=== PATIENT | female | born 1965 | race African-American/Black ===

== ENCOUNTER 2019-06-07 12:12 | Outpatient (CLI) | payer MEDICARE ==
--- NOTE | 2019-06-07 15:40 | MMO ---
Bilateral MAMMO Bilat Screen [facility]. CLINICAL HISTORY: Patient is 53 years old and is seen for screening. The patient has the following family history of breast cancer: sister, at age 40. The patient has no personal history of cancer. VIEWS: The views performed were: bilateral craniocaudal with tomosynthesis and bilateral mediolateral oblique with tomosynthesis. FILMS COMPARED: The present examination has been compared to prior imaging studies performed at [facility] on 08/07/2008, 12/20/2009, 01/28/2011 and 04/02/2012. MAMMOGRAM FINDINGS: There are scattered fibroglandular densities. Finding 1: There are stable benign appearing calcifications seen in both breasts. Finding 2: Stable scattered benign appearing nodular densities are seen in each breast. There are no suspicious masses, suspicious calcifications, or new areas of architectural distortion. IMPRESSION: THERE IS NO MAMMOGRAPHIC EVIDENCE OF MALIGNANCY. A ROUTINE FOLLOW-UP MAMMOGRAM IN 1 YEAR IS RECOMMENDED. THE RESULTS OF THIS EXAM WERE SENT TO THE PATIENT. ACR BI-RADS Category 2 - Benign finding MAMMOGRAPHY NOTE: 1. A negative mammogram report should not delay a biopsy if a dominant of clinically suspicious mass is present. 2. Approximately 10% to 15% of breast cancers are not detected by mammography. 3. Adenosis and dense breasts may obscure an underlying neoplasm. Reported by: DONNA GONZÁLES MD Electonically Signed: [id number]
== END 2019-06-07 12:13 | disposition home or self-care (01) ==
LOC: BICMAMMO 12:12
PROVIDERS: ATTEND Family Medicine
DX: Z12.31 Encounter for screening mammogram for malignant neoplasm of breast (principal); Z80.3 Family history of malignant neoplasm of breast
CPT/HCPCS: 77063; 77067

== ENCOUNTER 2022-04-09 11:01 | Outpatient (CLI) | payer MEDICARE | END 2022-04-09 11:02 | disposition home or self-care (01) | LOC: BICMAMMO 11:01 | PROVIDERS: ATTEND Family Medicine | DX: Z12.31 Encounter for screening mammogram for malignant neoplasm of breast (principal); Z80.3 Family history of malignant neoplasm of breast | CPT/HCPCS: 77063; 77067 ==

== ENCOUNTER 2022-04-30 14:25 | Outpatient (CLI) | payer MEDICARE ==
[2022-04-30 15:18] LABS: #Eosinphils 0.1 10x3/uL (0.0-0.5); #Monocytes 0.6 10x3/uL (0.0-1.1); #Neutrophils 2.1 10x3/uL (1.5-8.4); %Basophils 0.4 % (0.0-2.0); %Eosinophils 1.5 % (0.0-6.0); %Lymphocytes 39.7 % (18.0-47.0); %Monocytes 12.5 % (0.0-10.0); %Neutrophils 45.7 % (40.0-75.0); Hemoglobin 12.1 g/dL (12.0-15.5); Mean Corpuscular HGB CONC 34.2 g/dL (32.0-36.0); Mean Corpuscular Hemoglobin 31.3 pg (27.0-33.0); Mean Corpuscular Volume 91.7 fl (81.6-98.3); Mean Platelet Volume 9.3 fl (7.4-10.4); Platelet Count 330 10x3/uL (150-450); RBC Distribution Width 11.9 % (11.5-14.5); Red Blood Cell (RBC) Count 3.86 10x6/uL (3.90-5.03); White Blood Cell (WBC) Count 4.6 10x3/uL (3.5-10.5)
[2022-04-30 15:37] LABS: INR-International Normal Ratio 0.9; Prothrombin Time 10.2 sec (9.5-12.1)
[2022-04-30 15:43] LABS: Anion Gap 14 mmol/L (10-20); BUN (Urea Nitrogen) 18 mg/dL (9.8-20.1); Calc. Creatinine Clearance 0 mL/min (70-130); Calcium 9.5 mg/dL (7.8-10.44); Carbon Dioxide 25 mmol/L (22-29); Chloride 108 mmol/L (98-107); Glucose 83 mg/dL (70-105); Potassium 4.1 mmol/L (3.5-5.1); Sodium 143 mmol/L (136-145)
== END 2022-04-30 14:26 | disposition home or self-care (01) ==
LOC: LABBT 14:25
PROVIDERS: ATTEND Orthopaedic Surgery
DX: Z01.818 Encounter for other preprocedural examination (principal); M17.12 Unilateral primary osteoarthritis, left knee; Z20.822 Contact with and (suspected) exposure to COVID-19
CPT/HCPCS: 80048; 85025; 85610; 87081; U0003; U0005; 93005; 93010

== ENCOUNTER 2022-05-05 06:23 | Inpatient (IN) | payer MEDICARE ==
[2022-05-05] MEDS ORDERED: Sodium Chloride 0.9% 100 ML ONE ×2 (06:51→09:11)
[2022-05-05] MEDS ORDERED: Tranexamic Acid 1,000 MG/10 ML VIAL ONE (06:51)
[2022-05-05] MEDS ORDERED: VANCOMYCIN 2 GRAM/500 ML BAG 2 GM in Premix Bag 1 BAG IVPB SCH (07:00)
[2022-05-05] MEDS ORDERED: Midazolam HCl 2 mg/2 ml Vial ONE (07:46)
[2022-05-05] MEDS ORDERED: Fentanyl 100 MCG/2 ML VIAL ONE ×4 (07:46→13:46)
[2022-05-05] MEDS ORDERED: Lidocaine 1% (PF) 30 ML VIAL ONE (07:47)
[2022-05-05] MEDS ORDERED: Fentanyl 100 MCG/2 ML VIAL IV PRN (08:21)
[2022-05-05] MEDS ORDERED: HYDROcodone/Acetaminophen 10/325 mg Tablet PO PRN (08:30)
[2022-05-05] MEDS ORDERED: Promethazine HCl 25 MG/ML VIAL IM PRN ×2 (08:30→09:05)
[2022-05-05] MEDS ORDERED: Ondansetron PF 4 MG/2 ML Vial IVP PRN ×2 (08:30→09:05)
[2022-05-05] MEDS ORDERED: Ropivacaine 0.2% 550 ML 550 ML NERVE BLCK SCH (08:30)
[2022-05-05] MEDS ORDERED: Zolpidem Tartrate 5 MG TAB PO PRN ×2 (08:30→09:05)
[2022-05-05] MEDS ORDERED: traMADol HCl 50 MG TAB PO PRN ×2 (08:30)
[2022-05-05] MEDS ORDERED: Bupivacaine PF 0.5% 30 ML VIAL ONE (08:55)
[2022-05-05] MEDS ORDERED: fentaNYL Citrate/PF 100 MCG/2 ML SYRINGE ONE ×3 (09:03→10:12)
[2022-05-05] MEDS ORDERED: Acetaminophen 325 MG TAB PO PRN (09:05)
[2022-05-05] MEDS ORDERED: diphenhydrAMINE 25 MG CAP PO PRN (09:05)
[2022-05-05] MEDS ORDERED: CEFAZOLIN 2 GM VIAL ONE (09:11)
[2022-05-05] MEDS ORDERED: Ketorolac Tromethamine 30 MG/ML VIAL ONE (12:22)
[2022-05-05] MEDS: Ketorolac Tromethamine 30 MG/ML VIAL IVP SCH ×2 (16:18→17:35)
[2022-05-05] MEDS: CEFAZOLIN 2 GM in Sodium Chloride 0.9% 100 ML IVPB SCH (17:35)
[2022-05-05] MEDS: Oxybutynin 5 MG TAB PO SCH (21:03)
[2022-05-05] MEDS: Aspirin 81 mg Enteric Coated Tablet PO SCH (21:03)
[2022-05-05] MEDS: Ferrous Gluconate 324 MG TAB PO SCH (21:03)
[2022-05-05] MEDS: Atorvastatin Calcium 10 MG TAB PO SCH (21:03)
[2022-05-05] MEDS: Senokot S 8.6-50 MG TAB PO SCH (21:03)
[2022-05-05] MEDS: HYDROcodone/Acetaminophen 10/325 mg Tablet PO PRN (21:04)
[2022-05-06] MEDS: HYDROcodone/Acetaminophen 10/325 mg Tablet PO PRN ×3 (01:25→16:56)
[2022-05-06] MEDS: Ketorolac Tromethamine 30 MG/ML VIAL IVP SCH ×5 (01:25→18:22)
[2022-05-06] MEDS: CEFAZOLIN 2 GM in Sodium Chloride 0.9% 100 ML IVPB SCH ×2 (01:25→05:10)
[2022-05-06 05:27] LABS: Hemoglobin 10.6 g/dL (12.0-16.0); Mean Corpuscular HGB CONC 33.7 g/dL (32.0-36.0); Mean Corpuscular Hemoglobin 32.8 pg (27.0-31.0); Mean Corpuscular Volume 97.3 fL (78.0-98.0); Mean Platelet Volume 6.3 fL (7.4-10.4); Platelet Count 282 thou/uL (130-400); RBC Distribution Width 11.1 % (11.5-14.5); Red Blood Cell (RBC) Count 3.24 mill/uL (4.20-5.40)
[2022-05-06] MEDS: Senokot S 8.6-50 MG TAB PO SCH ×2 (08:50→19:48)
[2022-05-06] MEDS: Aspirin 81 mg Enteric Coated Tablet PO SCH ×2 (08:50→19:49)
[2022-05-06] MEDS: Oxybutynin 5 MG TAB PO SCH ×2 (08:50→19:49)
[2022-05-06] MEDS: Ferrous Gluconate 324 MG TAB PO SCH ×2 (08:50→19:49)
[2022-05-06] MEDS ORDERED: Hydrochlorothiazide 25 MG TAB PO SCH (09:00)
[2022-05-06] MEDS ORDERED: Multivitamin W/ Minerals 1 TAB PO SCH (09:00)
[2022-05-06 19:36] VITALS: BP 127/77; TEMP 98
[2022-05-06] MEDS: Atorvastatin Calcium 10 MG TAB PO SCH (19:49)
[2022-05-06 19:54] VITALS: BMI 43.9
== END 2022-05-06 21:50 | DRG 470 ==
LOC: SDC 06:23 → SURG A 09:05 → OBSVTOIN 05-06 07:12
PROVIDERS: ADMIT Orthopaedic Surgery; ATTEND Orthopaedic Surgery
PROC: 0SRD0J9 Replacement of Left Knee Joint with Synthetic Substitute, Cemented, Open Approach (ICD-10-PCS; principal; 2022-05-05)
DX: M17.12 Unilateral primary osteoarthritis, left knee (principal)
CPT/HCPCS: 36415; 85027; 93005; 93010; 96365; 96375; 96376; A4306; C1713; C1776; G0378; J0690; J1885; J2001; J2250; J2795; J3010; J3370; J3490; S0020